=== PATIENT | male | born 1980 | race Caucasian/White ===

== ENCOUNTER 2022-02-25 18:18 | Emergency (ER) | payer OTHER, SELFPAY ==
[2022-02-25 18:34] VITALS: BP 120/67; PULSE 81; RESP 18; TEMP 37.3; O2SAT 98
--- NOTE | 2022-02-25 19:13 | ED.WOUNDLAC ---
HPI - Wound/Laceration General Chief Complaint: Wound/Laceration Stated Complaint: Laceration to Right Leg Time Seen by Provider: 02/25/22 19:13 Source: patient and RN notes reviewed Mode of arrival: ambulatory Limitations: no limitations History of Present Illness HPI narrative: 41-year-old male presents with concern for laceration to the right lower leg. He reports while at work he lacerated the leg on a razor blade. He reports he had trouble controlling the bleeding however the bleeding has since slowed down. He reports he is not up-to-date on his vaccinations. He denies any decreased sensation, strength, range of motion distal to the wound Extremity Location: Right: lower leg Related Data Home Medications Medication Instructions Recorded Confirmed buprenorphine 8 mg-naloxone 2 mg 1 film SUBLINGUAL DAILY 11/01/19 02/25/22 sublingual film naloxone 4 mg/actuation nasal spray 4 mg NASAL Q2-3M PRN 11/01/19 11/02/19 ranitidine HCl 150 mg tablet 150 mg PO DAILY 11/01/19 02/25/22 gabapentin 300 mg PO DAILY 02/25/22 02/25/22 ibuprofen 800 mg PO DAILY 02/25/22 02/25/22 omeprazole 20 mg PO DAILY 02/25/22 02/25/22 Allergies Allergy/AdvReac Type Severity Reaction Status Date / Time No Known Allergies Allergy Verified 02/25/22 18:44 Review of Systems Review of Systems: CONSTITUTIONAL: Denies malaise, chills, sweats, or fever. SKIN: Reports laceration to the right lower leg MUSCULOSKELETAL: Denies muscle skeletal pain NEUROLOGIC: Denies numbness, weakness All systems reviewed & are unremarkable except as noted in HPI and below PMFSH Past Medical History Medical History (Updated 02/25/22 @ 19:38 by Kelly Beck NP) Opioid use disorder Social History Social History (Updated 11/02/19 @ 13:56 by Nancy Mckeon) Social History: pt smoked for 25 years and now vaping 3 years Smoking status: Current every day smoker Tobacco type: e-cigarettes/vaping Alcohol intake: current Comments At time of signature, agree with nursing past medical, surgical, social and family history. There is no relevant family history pertinent to the presenting complaint Exam Narrative: GENERAL: Well-appearing, well-nourished, and in no acute distress. HEAD: Normocephalic, atraumatic. EYES: PERRLA, conjunctivae clear, and EOMI. ENT: Mucous membranes moist. Oropharynx without edema, erythema or lesions. NECK: Supple. No lymphadenopathy CHEST: Clear to auscultation. No respiratory distress. HEART: Regular rate and rhythm. SKIN: Warm, dry. 7 cm linear laceration noted to right lower leg NEURO: Alert and oriented x3. PSYCH: Normal mood and affect Course Course Emergency Course: Patient is aware of diagnosis, understands and agrees to treatment plan. Anticipatory guidance given. Patient agrees to follow-up as directed and is aware of reasons to seek care at the emergency department. Portions of this record may have been created with voice recognition software Level of Care: Express Care Visit Vital Signs Vital signs: Vital Signs Temperature 99.1 F 02/25/22 18:34 Pulse Rate 81 02/25/22 18:34 Respiratory Rate 18 02/25/22 18:34 Blood Pressure 120/67 02/25/22 18:34 Pulse Oximetry 98 02/25/22 18:34 Temperature 99.1 F 02/25/22 18:34 Pulse Rate 81 02/25/22 18:34 Respiratory Rate 18 02/25/22 18:34 Blood Pressure 120/67 02/25/22 18:34 Pulse Oximetry 98 02/25/22 18:34 Reviewed. Procedures Laceration Laceration 1: Date: 02/25/22 Time: 19:14 Site: lower extremity and other Side (If applicable): right Size (cm): 7 Description: linear Depth: simple, single layer Local Anesthetic: lidocaine 1% Amount of anesthesia used (mL): 4 Pre-repair: wound explored and irrigated extensively ====== Skin Level ====== Skin layer closed with: nylon Size (cm): 4-0 Number of sutures: 11 Technique: simple, inte
[2022-02-25] MEDS: TETANUS,DIPHTHERIA,AC PERTUSSIS ADULT (0.5 ML) BOOSTRIX IM (19:21)
== END 2022-02-25 19:50 | disposition home or self-care (01) ==
PROVIDERS: Emergency Provider Nurse Practitioner
DX: S81.811A Laceration without foreign body, right lower leg, initial encounter (principal); W26.8XXA Contact with other sharp object(s), not elsewhere classified, initial encounter; Z23 Encounter for immunization; F17.290 Nicotine dependence, other tobacco product, uncomplicated; J45.909 Unspecified asthma, uncomplicated
CPT/HCPCS: 12002; 90471; 90715; 99212; G0463

== ENCOUNTER 2022-03-10 11:16 | Emergency (ER) | payer OTHER, SELFPAY ==
[2022-03-10 11:20] VITALS: BP 120/75; PULSE 77; RESP 20; TEMP 36.3; O2SAT 95
--- NOTE | 2022-03-10 11:49 | ED.WOUNDLAC ---
HPI - Wound/Laceration General Chief Complaint: Wound/Laceration Stated Complaint: Suture Removal Time Seen by Provider: 03/10/22 11:45 Source: patient Mode of arrival: ambulatory Limitations: no limitations History of Present Illness HPI narrative: 41 year old male presents to express care to have stitches removed from laceration on his right lower lateral leg that were placed in out clinic on the 25 of February. Incision line appears well healed with no redness or any drainage of wound noted. Tetanus was updated on the 25 of February at time of injury. Onset (ago): day(s) Location: other (right lateral lower leg) Patient tetanus UTD: Yes Related Data Home Medications Medication Instructions Recorded Confirmed gabapentin 300 mg capsule 300 mg PO DAILY 02/25/22 03/10/22 ibuprofen 800 mg tablet 800 mg PO DAILY 02/25/22 03/10/22 Allergies Allergy/AdvReac Type Severity Reaction Status Date / Time No Known Allergies Allergy Verified 03/10/22 11:47 Review of Systems Review of Systems: CONSTITUTIONAL: Denies fever, chills, or sweats. EYES: Denies visual changes, redness, or discharge. ENT: Denies rhinorrhea, congestion, sore throat, or otalgia. CARDIOVASCULAR: Denies chest pain, palpitations, or edema. RESPIRATORY: Denies cough or dyspnea. GASTROINTESTINAL: Denies abdominal pain, nausea, vomiting, or diarrhea. GENITOURINARY: Denies dysuria or hematuria. SKIN: Denies rash or itching.11 stitches noted to laceration site right lower lateral leg, here today for removal. MUSCULOSKELETAL: Denies back pain, joint pain, or myalgia. NEUROLOGIC: Denies headache, numbness, or weakness. PSYCHIATRIC: Denies anxiety or depression. [facility] Past Medical History Medical History (Updated 03/11/22 @ 08:39 by Miladis Hatfield NP) Asthma Opioid use disorder Surgical History Surgical History (Updated 03/11/22 @ 08:39 by Miladis Hatfield NP) H/O Spinal surgery C4-5 titanium implants Social History Social History (Updated 11/02/19 @ 13:56 by Nancy Mckeon) Social History: pt smoked for 25 years and now vaping 3 years Smoking status: Current every day smoker Tobacco type: e-cigarettes/vaping Alcohol intake: current Comments At time of signature, agree with nursing past medical, surgical, social and family history. There is no relevant family history pertinent to the presenting complaint Exam Narrative: GENERAL: Well-appearing, well-nourished, and in no acute distress. HEAD: Normocephalic, atraumatic. EYES: PERRLA and EOMI. ENT: Nares clear, no rhinorrhea or epistaxis. Mucous membranes moist.TM's normal with good light reflex, throat pink with no lesions or exudates no tonsil enlargement. NECK: Supple. no lymphadenopathy CHEST: Clear to auscultation. No respiratory distress.SAO2 95% on room air, denies any shortness of breath no tachypnea noted. HEART: Regular rate and rhythm. No murmur heard. Normal peripheral pulses. ABDOMEN: Soft, nontender, nondistended, normal active bowel sounds. EXTREMITIES: Normal range of motion. No edema. SKIN: Warm, dry, no rash.Laceration site to right lateral lower leg well healed with no drainage or redness, 11 sutures removed. NEURO: No focal deficits. Alert and oriented x3. Course Course Level of Care: Express Care Visit Vital Signs Vital signs: Vital Signs Temperature 36.3 C L 03/10/22 11:20 Pulse Rate 77 03/10/22 11:20 Respiratory Rate 20 03/10/22 11:20 Blood Pressure 120/75 03/10/22 11:20 Pulse Oximetry 95 03/10/22 11:20 Oxygen Delivery Room Air 03/10/22 11:20 Temperature 36.3 C L 03/10/22 11:20 Pulse Rate 77 03/10/22 11:20 Respiratory Rate 20 03/10/22 11:20 Blood Pressure 120/75 03/10/22 11:20 Pulse Oximetry 95 03/10/22 11:20 Oxygen Delivery Room Air 03/10/22 11:20 Procedures Other Procedure Procedure 1: Other Procedure: Patient here today for removal of 11 stitches from laceration on right lower lateral leg with
== END 2022-03-10 12:15 | disposition home or self-care (01) ==
PROVIDERS: Emergency Provider Registered Nurse; PCP Physician Assistant
DX: S81.811D Laceration without foreign body, right lower leg, subsequent encounter (principal); X58.XXXD Exposure to other specified factors, subsequent encounter; J45.909 Unspecified asthma, uncomplicated; F17.290 Nicotine dependence, other tobacco product, uncomplicated
CPT/HCPCS: 99211; G0463

== ENCOUNTER 2022-04-18 08:54 | Emergency (ER) | payer OTHER, SELFPAY ==
[2022-04-18 09:02] VITALS: BP 134/72; PULSE 76; RESP 18; TEMP 37; O2SAT 96
--- NOTE | 2022-04-18 10:20 | ED.GENADULT ---
HPI - General Adult General Chief complaint: Skin/Abscess/Foreign Body Stated complaint: Insect Bite Source: patient Mode of arrival: ambulatory Limitations: no limitations History of Present Illness HPI narrative: Patient presents for evaluation of rash. He indicates that 7 days ago he noted a lesion to the left wrist. He had been working outdoors and thought that he was bit by a spider. He did not actually visualize a spider in that region. He was simply speculating. 4 days ago he noted vesicular rash to the left forearm. 2 days ago he noted a vesicular rash around the left eye. He has associated tearing in the left eye. He reports blurred vision but denies other visual disturbance. He states rash has been pruritic and painful. When asked to describe the pain in affected area he notes that it is itching . He applied neosporin to facial rash but does not believe that it necessarily helped. He believes he had chicken pox in the past. He does not believe he has ever had an allergic reaction to poison franklin in the past. Related Data Home Medications Medication Instructions Recorded Confirmed gabapentin 300 mg capsule 300 mg PO DAILY 02/25/22 04/18/22 ibuprofen 800 mg tablet 800 mg PO DAILY 02/25/22 04/18/22 buprenorphine 8 mg-naloxone 2 mg tablet sublingual 04/18/22 sublingual tablet omeprazole 20 mg capsule,delayed 20 mg PO DAILY 04/18/22 04/18/22 release Allergies Allergy/AdvReac Type Severity Reaction Status Date / Time No Known Allergies Allergy Verified 04/18/22 09:29 Review of Systems Review of Systems: CONSTITUTIONAL: Denies fever, chills, or sweats. EYES: Reports blurred vision and tearing from left eye ENT: Denies rhinorrhea, congestion, sore throat, or otalgia. CARDIOVASCULAR: Denies chest pain, palpitations, or edema. RESPIRATORY: Denies cough or dyspnea. GASTROINTESTINAL: Denies abdominal pain, nausea, vomiting, or diarrhea. GENITOURINARY: Denies dysuria or hematuria. SKIN: Reports painful and pruritic rash to left forearm and left periorbital region MUSCULOSKELETAL: Denies back pain, joint pain, or myalgia. NEUROLOGIC: Denies headache, numbness, dizziness, or weakness. PSYCHIATRIC: Denies anxiety or depression. COUNT INCLUDES THE [facility] Past Medical History Medical History Asthma Opioid use disorder Surgical History Surgical History H/O Spinal surgery C4-5 titanium implants Family History Family History Mother No pertinent past medical history Social History Social History Social History: pt smoked for 25 years and now vaping 3 years Smoking status: Current every day smoker Tobacco type: e-cigarettes/vaping Alcohol intake: current Substance use: former Substance use type: opiates Living arrangements: alone Gender identity (if verbalized by the patient): Male Spiritual care concerns: No Exam Narrative: GENERAL: Well-appearing, well-nourished, and in no acute distress. HEAD: Normocephalic, atraumatic. EYES: PERRLA and EOMI. I do not appreciate any significant dye uptake in the left eye. ENT: Nares clear, no rhinorrhea or epistaxis. Mucous membranes moist. Oropharynx without tonsillar hypertrophy exudate or other lesions. Bilateral TMs pearly carlos nonbulging NECK: Supple. No adenopathy or masses. No carotid bruits or JVD CHEST: Clear to auscultation. No respiratory distress. No wheezes rales or rhonchi HEART: Regular rate and rhythm. No murmur heard. Normal peripheral pulses. ABDOMEN: Soft, nontender, nondistended, normal active bowel sounds. EXTREMITIES: Normal range of motion. No edema. SKIN: There are 2 areas of vesicles in clusters to left forearm with a 1 cm area of erythema at the left wrist. There is a vesicular rash in the left per
== END 2022-04-18 10:32 | disposition home or self-care (01) ==
PROVIDERS: Emergency Provider Nurse Practitioner
DX: R21 Rash and other nonspecific skin eruption (principal); H10.9 Unspecified conjunctivitis; F17.290 Nicotine dependence, other tobacco product, uncomplicated; J45.909 Unspecified asthma, uncomplicated
CPT/HCPCS: 87255; 99213; A9270; G0463

== ENCOUNTER 2024-03-07 14:14 | Emergency (ER) | payer OTHER, SELFPAY ==
[2024-03-07 14:18] VITALS: BP 115/79; PULSE 84; RESP 20; TEMP 36.2; O2SAT 96
--- NOTE | 2024-03-07 15:21 | ED.SKABFB ---
HPI - Skin/Abscess/Foreign Bdy General Chief complaint: Skin/Abscess/Foreign Body Stated complaint: left eye Time Seen by Provider: 03/07/24 15:00 Source: patient, RN notes reviewed and old records reviewed Mode of arrival: ambulatory Limitations: no limitations History of Present Illness HPI narrative: 43 year old male presents to [facility] with complaints of red itchy rash to his inner aspect of his eft eye with increase in left eye swelling today,symptoms for the past 3 days. Patient reports that he has been working in the yard and thinks he came into contact with poison franklin. Patient also has patches of red itchy.rash on bilateral arms. MD complaint: rash and other (left eye swelling) Onset (ago): day(s) (3) Severity: moderate Quality: pruritic Related Data Home Medications Medication Instructions Recorded Confirmed buprenorphine 8 mg-naloxone 2 mg See Rx Instructions .Route .COMPLEX 04/18/22 03/07/24 sublingual tablet gabapentin 600 mg tablet 600 mg PO QID 03/07/24 03/07/24 Allergies Allergy/AdvReac Type Severity Reaction Status Date / Time No Known Allergies Allergy Verified 03/07/24 14:31 Review of Systems Review of Systems: CONSTITUTIONAL: Denies fever, chills, or sweats. CARDIOVASCULAR: Denies chest pain, palpitations, or edema. RESPIRATORY: Denies cough or dyspnea. SKIN: Reports raised red itchy rash to bilateral arms and rash to left inner eyelid and side of nose with swelling of left upper eyelid MUSCULOSKELETAL: Denies joint pain or myalgia. NEUROLOGIC: Denies headache, numbness, or weakness. All systems reviewed & are unremarkable except as noted in HPI and below PMFSH Past Medical History Medical History (Updated 03/08/24 @ 13:09 by Miladis Hatfield NP) Asthma Opioid use disorder on suboxone VONDA on CPAP Surgical History Surgical History H/O Spinal surgery C4-5 titanium implants Family History Family History Mother No pertinent past medical history Social History Social History Social History: pt smoked for 25 years and now vaping 3 years Smoking status: Current every day smoker Tobacco type: e-cigarettes/vaping Alcohol intake: current Substance use: former Substance use type: opiates Living arrangements: alone Gender identity (if verbalized by the patient): Male Spiritual care concerns: No Comments At time of signature, agree with nursing past medical, surgical, social and family history. There is no relevant family history pertinent to the presenting complaint Exam Narrative: GENERAL: Well-appearing, well-nourished, and in no acute distress. HEAD: Normocephalic, atraumatic. EYES: PERRLA, conjunctivae clear, and EOMI.left eye swelling with red slight raised rash to left inner upper eyelid and side of nose ENT: Mucous membranes moist. Oropharynx without edema, erythema or lesions. NECK: Supple. No lymphadenopathy CHEST: Clear to auscultation. No respiratory distress.SAO2 96% on room air HEART: Regular rate and rhythm. left upper eyelid and nose SKIN: Warm, dry.? Patches of erythema and edema scattered on upper extremities and on left upper eyelid and nose NEURO:? Alert and oriented x3. PSYCH: Normal mood and affect Course Course Emergency Course: Patient is aware of diagnosis, understands and agrees to treatment plan.? Anticipatory guidance given.? Patient agrees to follow-up as directed and is aware of reasons to seek care at the emergency department. Portions of this record may have been created with voice recognition software Level of Care: Express Care Visit Vital Signs Vital signs: Vital Signs Temperature 36.2 C L 03/07/24 14:18 Pulse Rate 84 03/07/24 14:18 Respiratory Rate 20 03/07/24 14:18 Blood Pressure 115/79 03/07/24 14:18 Puls
[2024-03-07] MEDS: methylPREDNISolone ACETATE 80 MG/ML VIAL IM (15:28)
== END 2024-03-07 15:50 | disposition home or self-care (01) ==
PROVIDERS: Emergency Provider Registered Nurse; PCP Physician Assistant
DX: L25.9 Unspecified contact dermatitis, unspecified cause (principal); H02.844 Edema of left upper eyelid; F17.290 Nicotine dependence, other tobacco product, uncomplicated; J45.909 Unspecified asthma, uncomplicated; G47.33 Obstructive sleep apnea (adult) (pediatric)
CPT/HCPCS: 96372; 99213; G0463; J1010

== ENCOUNTER 2024-12-07 13:08 | Emergency (ER) | payer OTHER, SELFPAY ==
[2024-12-07 13:34] VITALS: BP 115/69; PULSE 84; RESP 20; TEMP 36.7; O2SAT 96
--- NOTE | 2024-12-07 14:24 | ED.URI ---
HPI - URI/Sore Throat General Chief Complaint: Upper Respiratory Infection Stated Complaint: fever/chest congestion Time Seen by Provider: 12/07/24 14:25 Source: patient Mode of arrival: ambulatory Limitations: no limitations History of Present Illness HPI Narrative: 44-year-old male presented for complaint of cough, chest congestion and wheezing. Onset 3 days, we says he had similar symptoms for 1 week which improved for few days before the symptoms started again. He says the cough is deep and has pain with coughing. Denies Ear pain, nasal congestion or throat pain, shortness of breath, nausea, vomiting, diarrhea or lethargy. Endorses exposure to black mold. Related Data Home Medications ?Medication ?Instructions ?Recorded ?Confirmed ?Last Taken ?Type buprenorphine 8 mg-naloxone 2 mg See Rx Instructions .Route .COMPLEX 04/18/22 03/07/24 Unknown History sublingual tablet gabapentin 600 mg tablet 600 mg PO QID 03/07/24 03/07/24 Unknown History buprenorphine 8 mg-naloxone 2 mg film 12/07/24 Unknown History sublingual film ibuprofen 800 mg tablet mg 12/07/24 Unknown History Allergies Allergy/AdvReac Type Severity Reaction Status Date / Time No Known Allergies Allergy Verified 12/07/24 14:09 Review of Systems Review of Systems: per HPI All systems reviewed & are unremarkable except as noted in HPI and below PMFSH Past Medical History Medical History (Updated 12/07/24 @ 15:02 by Tabitha Gaytan, BHAVNA) Asthma VONDA on CPAP Opioid use disorder on suboxone Surgical History Surgical History H/O Spinal surgery C4-5 titanium implants Family History Family History Mother No pertinent past medical history Social History Social History Social History: pt smoked for 25 years and now vaping 3 years Smoking status: Current every day smoker Tobacco type: e-cigarettes/vaping Alcohol intake: current Substance use: former Substance use type: opiates Living arrangements: alone Gender identity (if verbalized by the patient): Male Spiritual care concerns: No Comments At time of signature, I have reviewed and agree with nursing past medical, surgical, social and family history unless otherwise noted. Please see nursing chart for further information. There is no relevant family history pertinent to the presenting complaint Exam Narrative: GENERAL: Well-appearing, in no acute distress. EYES: EOMI. No redness or drainage. Conjunctivae normal. ENT: Mucous membranes pink and moist. CHEST: No respiratory distress. Wheezing to all rdz. HEART: Regular rate and rhythm. No murmur appreciated. ABDOMEN: Soft, nontender, nondistended, normal active bowel sounds. SKIN: Warm, dry, no rash. Capillary refill normal. Normal skin turgor. NEURO: Alert and oriented x3. Gait steady. PSYCH: Normal affect. Course Course Emergency Course: Patient is aware of diagnosis, understands and agrees to treatment plan. Anticipatory guidance given. Patient agrees to follow-up as directed and is aware of reasons to seek care at the emergency department. Portions of this record may have been created with voice recognition software Level of Care: Express Care Visit Vital Signs Vital signs: Vital Signs Temperature 98.0 F 12/07/24 13:34 Pulse Rate 84 12/07/24 13:34 Respiratory Rate 20 12/07/24 13:34 Blood Pressure 115/69 12/07/24 13:34 Pulse Oximetry 96 12/07/24 13:34 Oxygen Delivery Room Air 12/07/24 13:34 Temperature 98.0 F 12/07/24 13:34 Pulse Rate 84 12/07/24 13:34 Respiratory Rate 20 12/07/24 13:34 Blood Pressure 115/69 12/07/24 13:34 Pulse Oximetry 96 12/07/24 13:34 Oxygen Delivery Room Air 12/07/24 13:34 MDM - URI/Sore Throat MDM Narrative Medical decision making narrative: Discussed physical exam findings and CXR and RXs. Advised supportive measures and signs/symptoms to go to the ER. Pt is appropriate for outpt treatment and f/u. Differential Diagnosis Differential diagnosis: Likely upper respiratory infection, sinusitis, viral infection, bronchitis, influenza and pharyngitis Imaging Data Radiologist's impression: Patient: Dani Steinberg : 1980 MR#: [id number] Age: 44 Acct:[id number] Loc: [facility] ADM Date: 12/07/24Attending Dr: Ordering Physician: Tabitha Gaytan APRN Date of Service: 12/07/24 Procedure(s): XR chest 2V Accession Number(s): [id number] cc: Tabitha Gaytan APRN; LupeLaureen PA-C~ EXAMINATION: XR chest 2V DATE: 12/07/2024 14:52 INDICATION: Cough and wheezing TECHNIQUE: PA and lateral views of the chest were obtained. COMPARISON: None FINDINGS: The lungs are clear with no focal airspace opacities, pulmonary edema, pleural effusion or pneumothorax. The cardiomediastinal silhouette is normal. Mild thoracic dextrocurvature with mild spondylosis. IMPRESSION: 1. No acute cardiopulmonary disease. Discharge Plan Discharge Clinical Impression: Bronchitis Patient Disposition: Home, Self-Care Condition: Stable Instructions: Antibiotic Form, Acute Bronchitis (ED) Additional Instructions: Acute bronchitis can be contagious because it is usually caused by infection with a virus or bacteria. It is usually for a few days but you can be contagious for up to one week. Avoid crowds until you do not have a fever and symptoms are improved Take medication as directed Recommend: over the counter Cough syrup may cause drowsiness; avoid driving or take it at night time. Tylenol 1000mg every 8 hours as needed for pain Symptomatic treatment includes: rest, fluids, and increase humidity of the air at home. Follow up with your primary care provider as needed in 1 week Go to the ER for worsening symptoms or concerns Patient Language: Hebrew Prescriptions: New prednisone 50 mg tablet 50 mg PO DAILY Qty: 5 0RF albuterol sulfate 90 mcg/actuation HFA aerosol inhaler 2 inh inhalation QID PRN (Reason: shortness of breath or wheezing) Qty: 8.5 0RF amoxicillin-pot clavulanate 875-125 mg tablet 1 tablet PO Q12H 7 Days Qty: 14 0RF No Action ibuprofen 800 mg tablet buprenorphine-naloxone 8-2 mg film buprenorphine-naloxone [Suboxone] 8-2 mg Tablet, Sublingual See Rx Instructions .ROUTE .COMPLEX Rx Instructions: as prescribed gabapentin 600 mg tablet 600 mg PO QID Follow-up/Referrals: LupeLaureen PA-C [Primary Care Provider] - Time of Disposition: 15:04
== END 2024-12-07 15:06 | disposition home or self-care (01) ==
PROVIDERS: Emergency Provider Nurse Practitioner Family; PCP Physician Assistant
DX: J40 Bronchitis, not specified as acute or chronic (principal); F17.210 Nicotine dependence, cigarettes, uncomplicated; Z79.1 Long term (current) use of non-steroidal anti-inflammatories (NSAID); Z79.899 Other long term (current) drug therapy
CPT/HCPCS: 71046; 99213; G0463

== ENCOUNTER 2025-07-21 12:42 | Emergency (ER) | payer OTHER, SELFPAY ==
--- OUTSIDE RECORDS SUMMARY | 2025-07-21 12:44 | XMS_ITS | Clinical Summary ---
Author Organization [facility] Address [address] [place] [address] Care Team Providers Care Lawn Specialist Name Role Phone Antoine Lima MD Primary Care Provider [phone] Allergies No known active allergies Medications No known medications Social History Tobacco Use Types Packs/Day Years Used Date Smoking Tobacco: Never Assessed Personal Safety Answer Date Recorded Getting School Help Needed Not on file 12/25 Sex and Gender Information Value Date Recorded Sex Assigned at Not on file Legal Sex Male 5:29 AM CDT Gender Identity Not on file Sexual Orientation Not on file Last Filed Vital Signs Vital Sign Reading Time Taken Comments Blood Pressure - - Pulse - - Temperature - - Respiratory Rate - - Oxygen Saturation - - Inhaled Oxygen Concentration - - Weight 97.5 kg (215 lb) 05/09/2018 9:50 AM CDT Height 180.3 cm (5' 11) 05/09/2018 9:50 AM CDT Body Mass Index 29.99 05/09/2018 9:50 AM CDT Plan of Treatment Not on file Insurance [facility] Care Teams Lawn Specialist Relationship Specialty Start Date End Date Antoine Lima MD [address] [place] [address] PCP - General Internal Medicine 04/20/18
--- OUTSIDE RECORDS SUMMARY | 2025-07-21 12:44 | XMS_ITS | Clinical Summary ---
Author Organization [facility] Address [address] [place] [address] Care Team Providers Care Clubhouse Manager Name Role Phone Unavailable Primary Care Provider Unavailabl e Source Comments [facility],non-owned Affiliates and Associated Physician Practices is amultiple site organization consisting of ambulatory clinics and hospital sitesin [place], [place], [place] and [place]. This disclosure is being madepursuant to the Care Everywhere program and may not contain all information available regarding this patient. Last updated 18.[facility] Social History Tobacco Use Types Packs/Day Years Used Date Smoking Tobacco: Never Assessed Sex and Gender Information Value Date Recorded Sex Assigned at Not on file Legal Sex Male 5:59 PM CDT Gender Identity Not on file Sexual Orientation Not on file Plan of Treatment Health Maintenance Due Date Last Done Comments COLOGUARD (AGES 45-75) - COL ON CA SCREENING 1978 COLON MONITORING 1978 COLONOSCOPY - COLON CA SCREENING 1978 CT COLONOGRAPHY - COLON CA SCREENING 1978 Colorectal Cancer Screening 1978 FIT - COLON CA SCREENING 1978 FLEX SIG - COLON CA SCREENING 1978 LIPID TESTING 1978 HIV SCREENING 1993 HEPATITIS C SCREENING 04/28/1996 DTAP/TDAP/TD VACCINES (1 - Tdap) 1997 HEPATITIS B VACCINE (1 of 3 - 19+ 3-dose series) 1997 DEPRESSION SCREENING 10/11/2024 COVID-19 VACCINE (1 - 2023-2 5 season) 2025 INFLUENZA VACCINE (#1) 2025 ZOSTER VACCINE (1 of 2) 2028 HIB VACCINE Aged Out No longer eligi ble based on patient's age to complete this topic HPV VACCINE Aged Out No longer eligi ble based on patient's age to complete this topic MENINGOCOCCAL (Group B) VACC INE SHARED DECISION-MAKING Aged Out No longer eligibl e based on patient's age to complete this topic MENINGOCOCCAL GROUPS A/C/Y/W VACCINE Aged Out No longer eligible b ased on patient's age to complete this topic PNEUMOCOCCAL VACCINE Aged Out No long er eligible based on patient's age to complete this topic Insurance
[2025-07-21 12:46] VITALS: BP 133/81; PULSE 65; RESP 18; TEMP 36.4; O2SAT 98
--- NOTE | 2025-07-21 12:46 | ED.EYEPROB ---
HPI - Eye Problem General Chief complaint: Skin/Abscess/Foreign Body Stated complaint: Right Eye Problem Time Seen by Provider: 07/21/25 13:00 Source: patient Mode of arrival: ambulatory Limitations: no limitations History of Present Illness HPI Narrative: Dani is a 45-year-old male patient presenting to the clinic today with complaints of right eye swelling/discomfort. He reports he developed eyelid swelling/possible insect bite on . States the area was itchy at but it is no longer itchy at this time and mildly painful. Denies any visual changes. Woke up this morning with his eye swollen shut. Denies any fevers, chills, body aches. Complaints of a headache-rates it a 4/10 currently. History chickenpox as a child. Related Data Home Medications ?Medication ?Instructions ?Recorded ?Confirmed ?Last Taken ?Type gabapentin 600 mg tablet 600 mg PO QID 03/07/24 03/07/24 Unknown History buprenorphine 8 mg-naloxone 2 mg film 12/07/24 Unknown History sublingual film ibuprofen 800 mg tablet mg 12/07/24 Unknown History Allergies Allergy/AdvReac Type Severity Reaction Status Date / Time No Known Allergies Allergy Verified 07/21/25 12:56 Review of Systems Review of Systems: Pertinent positives per HPI. Patient denies any fever, chills, rash, headache, visual changes, dizziness, cough, shortness of breath, chest pain, palpitations, nausea, vomiting, diarrhea, constipation, abdominal pain, or any urinary issues. [facility] Past Medical History Medical History (Updated 07/21/25 @ 13:25 by Obi Schwab APRN) Asthma VONDA on CPAP Opioid use disorder on suboxone Surgical History Surgical History H/O Spinal surgery C4-5 titanium implants Family History Family History Mother No pertinent past medical history Social History Social History Social History: pt smoked for 25 years and now vaping 3 years Smoking status: Current every day smoker Tobacco type: e-cigarettes/vaping Alcohol intake: current Substance use: former Substance use type: opiates Living arrangements: alone Gender identity (if verbalized by the patient): Male Spiritual care concerns: No Comments At the time of my signature, I reviewed and agree with the nursing past medical, surgical, social, and family history. There is no relevant family history pertinent to the patient complaint. Exam Narrative: General: Well-developed, well nourished, in no apparent distress Head: Normocephalic, atraumatic Eyes: Pupils equally round and reactive to light bilaterally, EOM intact, sclera and conjunctive clear, no discharge, left lids normal, right upper and lower eye lids swelling with periorbital edema-red, raised, blistery appearing rash to the upper eyelid with a possible insect bite to the right eyebrow with localized swelling. Ears: TMs intact and clear, ear canals clear, no drainage, grossly hearing normal. Nose: Nares patent, no discharge, no inflammation, no sinus tenderness. Mouth: Oral pharynx without lesions or masses, good dentition, MMM. Neck: Supple, trachea midline, no enlargement of anterior or posterior cervical nodes, no thyroid masses or goiter palpable. Cardio: Regular rate and rhythm, s1 and s2 normal, no murmur appreciated. Resp: Clear to auscultation bilaterally, no rhonchi, rales, wheezing or rubs Course Course Emergency Course: Portions of this record may have been created with voice recognition software. Level of Care: Express Care Visit Vital Signs Vital signs: Vital Signs Temperature 36.4 C L 07/21/25 12:46 Pulse Rate 65 07/21/25 12:46 Respiratory Rate 18 07/21/25 12:46 Blood Pressure 133/81 07/21/25 12:46 Pulse Oximetry 98 07/21/25 12:46 Oxygen Delivery Room Air 07/21/25 12:46 Temperature 36.4 C L 07/21/25 12:46 Pulse Rate 65 07/21/25 12:46 Respiratory Rate 18 07/21/25 12:46 Blood Pressure 133/81 07/21/25 12:46 Pulse Oximetry 98 07/21/25 12:46 Oxygen Delivery Room Air 07/21/25 12:46 Vital signs reviewed MDM - Eye Problem MDM Narrative Medical decision making narrative: At the time of visit patient is resting comfortably on the exam table. Patient appears to be nontoxic. Complaints of right eye swelling/discomfort. He reports he developed eyelid swelling/possible insect bite on . States the area was itchy at but it is no longer itchy at this time and mildly painful. Denies any visual changes. Woke up this morning with his eye swollen shut. Denies any fevers, chills, body aches. Complaints of a headache-rates it a 4/10 currently. History chickenpox as a child. Upon patient has right upper and lower eye lids swelling with periorbital edema-red, raised, blistery appearing rash to the upper eyelid with a possible insect bite to the right eyebrow with localized swelling. No eye pain or discharge-no obvious erythematous base rash with vesicular lesions-no radiation of pain. Positive red reflex Plan: I suspect patient likely has allergic dermatitis to the right eyelids but cannot rule out infectious process due to possible insect bite to the right eyebrow. Prescription for Augmentin and prednisone was sent to the pharmacy. I do not feel as though patient has herpes zoster. Supportive measures were discussed with the patient and they voiced understanding discharge instructions and agrees to treatment plan. Return precautions reviewed Differential Diagnosis Differential diagnosis: Likely corneal abrasion, conjunctivitis, acute iritis, hyphema, periorbital cellulitis, subconjunctival hemorrhage, glaucoma, corneal ulcer, ruptured globe and other (Periorbital edema, contact dermatitis to eyelid, infected insect bite) Discharge Plan Discharge Clinical Impression: Periorbital swelling Patient Disposition: Home Condition: Stable Instructions: Antibiotic Form, Periorbital Cellulitis (ED), Eyelid Swelling (ED) Additional Instructions: I suspect you have periorbital edema-possibly due to dermatitis but cannot rule out bacterial infection. Take prednisone and Augmentin as prescribed Increase fluids and stay well hydrated Apply ice pack to the affected area for 20 minutes at a time-20 minutes on/20 minutes off to help alleviate swelling May take Benadryl 25-50 mg every 6 hours as needed for swelling/itching Follow-up with your PCP/developmental mathematics instructor in 3-5 days. If symptoms worsen recommend going to the emergency room-[facility] or [facility] will have developmental mathematics instructor on-call. Patient Language: Romansh Prescriptions: New amoxicillin-pot clavulanate 875-125 mg tablet 1 tablet PO Q12H 7 Days Qty: 14 0RF prednisone 20 mg tablet 40 mg PO DAILY 5 Days Qty: 10 0RF No Action ibuprofen 800 mg tablet buprenorphine-naloxone 8-2 mg film gabapentin 600 mg tablet 600 mg PO QID Follow-up/Referrals: Adrienne,BRIANNE Garduno [Primary Care Provider] Time of Disposition: 13:25 Quality NIHSS Nursing Documentation ED NIHSS nursing documentation: reviewed/agree
== END 2025-07-21 13:33 | disposition home or self-care (01) ==
PROVIDERS: Emergency Provider Nurse Practitioner Family; PCP Physician Assistant
DX: H05.221 Edema of right orbit (principal); F17.290 Nicotine dependence, other tobacco product, uncomplicated; J45.909 Unspecified asthma, uncomplicated; G47.33 Obstructive sleep apnea (adult) (pediatric)
CPT/HCPCS: 99213; G0463